=== PATIENT | male | born 1940 | race Caucasian/White ===

== ENCOUNTER 2017-03-01 13:36 | Outpatient (CLI) | payer MEDICARE ==
[2017-03-01 14:18] LABS: eGFR (African) > 60; eGFR (Non-African) 57
== END 2017-03-01 13:37 ==
LOC: LAB 13:36
PROVIDERS: ATTEND Family Medicine
DX: E11.9 Type 2 diabetes mellitus without complications (principal)
CPT/HCPCS: 36415; 80053; 80061; 82043; 83036

== ENCOUNTER 2018-03-03 08:42 | Outpatient (CLI) | payer MEDICARE ==
[2018-03-03 09:22] LABS: eGFR (African) 59; eGFR (Non-African) 48
== END 2018-03-03 14:08 ==
LOC: LAB 08:42
PROVIDERS: ATTEND Family Medicine
DX: E11.9 Type 2 diabetes mellitus without complications (principal); I10 Essential (primary) hypertension
CPT/HCPCS: 36415; 80053; 80061; 83036

== ENCOUNTER 2019-08-21 08:15 | Outpatient (CLI) | payer MEDICARE ==
[2019-08-21 09:06] LABS: A1C 5.5 % (<5.7)
[2019-08-21 09:34] LABS: HDL 36 mg/dL (>40); eGFR (Non-African) 52
== END 2019-08-21 08:20 ==
LOC: LAB 08:15
PROVIDERS: ATTEND Family Medicine
DX: I25.10 Atherosclerotic heart disease of native coronary artery without angina pectoris (principal); E11.9 Type 2 diabetes mellitus without complications
CPT/HCPCS: 36415; 80053; 80061; 82043; 83036